=== PATIENT | female | born 1965 | race Caucasian/White ===

== ENCOUNTER → 2017-02-02 | Outpatient (CLI) | payer OTHER ==
[~2017-02-02] MED LIST: BUPROPION HCL150 M2 PO; ENDOCET 5-3251 EACH PO; LOPRESSOR25 MG PO; LUNESTA1 MG PO; MEDROL DOSEPAK4 MG PO; NABUMETONE500 MG PO; PERCOCET 5/31 TABLET PO; TIZANIDINE HCL2 MG PO; VOLTAREN 1% GE100 GM TP
== END | disposition home or self-care (01) ==
LOC: NUC 07:00
DX: K82.8 Other specified diseases of gallbladder (principal)
CPT/HCPCS: 78227; A9537; J2805

== ENCOUNTER → 2017-02-23 | Outpatient (CLI) | payer OTHER ==
[~2017-02-23] MED LIST changes: +MOTRIN800 MG PO; +VALIUM5 MG PO
== END | disposition home or self-care (01) ==
LOC: CDC 10:18
DX: K81.9 Cholecystitis, unspecified (principal)
CPT/HCPCS: 93000

== ENCOUNTER 2017-03-01 10:48 | Day surgery (SDC) | payer OTHER ==
[~2017-03-01] VITALS: Ht 165.1 cm; Wt 91.1 kg
[2017-03-01 11:17] VITALS: BP 138/88
[2017-03-01] MEDS ORDERED: TRAMADOL HCL50 MG PO (13:17)
[2017-03-01 15:40] VITALS: BP 141/67
[2017-03-01 16:09] VITALS: BP 139/72
== END 2017-03-01 16:30 | disposition home or self-care (01) ==
LOC: SDC 10:48
PROC: 0FT44ZZ Resection of Gallbladder, Percutaneous Endoscopic Approach (ICD-10-PCS; principal; 2017-03-01)
DX: K81.1 Chronic cholecystitis (principal); I10 Essential (primary) hypertension; F17.200 Nicotine dependence, unspecified, uncomplicated
CPT/HCPCS: 88304; J1100; J1170; J1885; J2250; J2405; J2710; J3010

== ENCOUNTER 2017-06-16 21:27 | Emergency (ER) | payer OTHER ==
[~2017-06-16] VITALS: Ht 167.6 cm; Wt 85.6 kg
[~2017-06-16 21:27] MED LIST changes: +TRAMADOL HCL50 MG PO
[2017-06-16 22:39] LABS: HEMATOCRIT 41.1 % (36.0-46.0); HEMOGLOBIN 14.1 G/DL (11.9-15.5); MCH 30.6 PG (29.0-34.0); MCHC 34.3 G/DL (30.0-36.0); MCV 89.2 FL (83-99); PLATELET COUNT 306 K/uL (156-360); RBC DIS.WIDTH-CV 12.1 % (11.8-14.6); RBC DIS.WIDTH-SD 39.7 % (39-53); RED BLOOD COUNT 4.61 M/uL (3.80-5.20); WHITE BLOOD COUNT 19.1 K/uL (4.1-10.2)
[2017-06-16 22:52] LABS: CHLORIDE 107 mEq/L (99-109); POTASSIUM 3.8 mEq/L (3.7-5.4); SODIUM 137 mEq/L (136-147)
[2017-06-16 23:01] LABS: GLUCOSE 134 mg/dL (70-99)
[2017-06-16 23:02] LABS: TROP-I INTERPRETATION NEGATIVE; TROPONIN-I < 0.01 ng/mL (0.0-0.30)
[2017-06-16 23:05] LABS: CREATININE 0.7 mg/dL (0.6-1.3); GFR ESTIMATE (CALCULATED) > 59 mL/min/; UREA NITROGEN (BUN) 17 mg/dL (9-23)
[2017-06-16 23:06] LABS: D-DIMER ELISA < 150.00 ng/mLDDU (<230)
[2017-06-16 23:28] VITALS: BP 172/94
== END 2017-06-16 23:29 | disposition home or self-care (01) ==
LOC: EME 21:27
PROVIDERS: Emergency Medicine
DX: R00.2 Palpitations (principal); T38.0X5A Adverse effect of glucocorticoids and synthetic analogues, initial encounter; I10 Essential (primary) hypertension; F17.200 Nicotine dependence, unspecified, uncomplicated; Z98.51 Tubal ligation status; Z88.5 Allergy status to narcotic agent
CPT/HCPCS: 80048; 84484; 85027; 85379; 93005; 99281; 99283

== ENCOUNTER 2017-08-20 18:54 | Emergency (ER) | payer OTHER ==
[~2017-08-20] VITALS: Ht 165.1 cm; Wt 87.2 kg
[2017-08-20 21:03] LABS: BASOPHIL (%) 0.3 % (0-1); EOSINOPHIL (%) 1.3 % (0-5); EOSINOPHIL COUNT 0.2 K/uL (0-0.3); HEMATOCRIT 25.6 % (36.0-46.0); IMMATURE GRANULOCYTE (%) 1.7 % (0.0-0.7); LYMPHOCYTE (%) 22.3 % (15-42); LYMPHOCYTE COUNT 2.5 K/uL (1.0-2.8); MCH 30.3 PG (29.0-34.0); MCHC 32.8 G/DL (30.0-36.0); MCV 92.4 FL (83-99); MONOCYTE (%) 8.5 % (3-12); NEUTROPHIL (%) 65.9 % (45-76); NEUTROPHIL COUNT 7.4 K/uL (1.8-6.4); PLATELET COUNT 308 K/uL (156-360); RBC DIS.WIDTH-CV 12.7 % (11.8-14.6); RBC DIS.WIDTH-SD 42.1 % (39-53); WHITE BLOOD COUNT 11.2 K/uL (4.1-10.2)
[2017-08-20 21:06] LABS: HEMOGLOBIN 8.4 G/DL (11.9-15.5); RED BLOOD COUNT 2.77 M/uL (3.80-5.20)
[2017-08-20 21:12] LABS: ALBUMIN 3.5 g/dL (3.2-4.8); CHLORIDE 108 mEq/L (99-109); POTASSIUM 3.7 mEq/L (3.7-5.4); SODIUM 142 mEq/L (136-147)
[2017-08-20 21:15] LABS: GLUCOSE 96 mg/dL (70-99); TOTAL PROTEIN 6.1 g/dL (6.4-8.3)
[2017-08-20 21:17] LABS: TOTAL BILIRUBIN 0.3 mg/dL (0.0-1.0)
[2017-08-20 21:18] LABS: ALKALINE PHOSPHATASE 64 IU/L (3-129); CREATININE 0.6 mg/dL (0.6-1.3); GFR ESTIMATE (CALCULATED) > 59 mL/min/
[2017-08-20 21:19] LABS: UREA NITROGEN (BUN) 13 mg/dL (9-23)
[2017-08-20 21:20] LABS: AST (GOT) 17 IU/L (2-34)
[2017-08-20 21:21] LABS: ALT (GPT) 18 IU/L (3-49)
[2017-08-20] MEDS ORDERED: KEFLEX500 MG PO (23:20)
[2017-08-21] MEDS ORDERED: DIFLUCAN150 MG PO (00:23)
[2017-08-21 00:55] VITALS: BP 175/100
== END 2017-08-21 00:56 | disposition home or self-care (01) ==
LOC: EME 18:54
PROVIDERS: Physician Assistant
DX: S72.112A Displaced fracture of greater trochanter of left femur, initial encounter for closed fracture (principal); M97.02XA Periprosthetic fracture around internal prosthetic left hip joint, initial encounter; X50.9XXA Other and unspecified overexertion or strenuous movements or postures, initial encounter; Y93.01 Activity, walking, marching and hiking; D64.9 Anemia, unspecified; Z96.642 Presence of left artificial hip joint; Z88.5 Allergy status to narcotic agent; F17.200 Nicotine dependence, unspecified, uncomplicated
CPT/HCPCS: 71046; 71275; 73502; 80053; 83605; 85025; 85379; 87040; 87070; 87075; 87205; 93005; 99281; 99285; J2270; J7030

== ENCOUNTER 2018-01-12 15:31 | Emergency (ER) | payer OTHER ==
[~2018-01-12] VITALS: Ht 165.1 cm; Wt 75.0 kg
[~2018-01-12 15:31] MED LIST changes: +DIFLUCAN150 MG PO; +KEFLEX500 MG PO
[2018-01-12 18:02] VITALS: BP 130/74
== END 2018-01-12 18:03 | disposition home or self-care (01) ==
LOC: EME 15:31
DX: S73.101A Unspecified sprain of right hip, initial encounter (principal); S83.91XA Sprain of unspecified site of right knee, initial encounter; X58.XXXA Exposure to other specified factors, initial encounter; Y93.01 Activity, walking, marching and hiking; Y92.007 Garden or yard of unspecified non-institutional (private) residence as the place of occurrence of the external cause; F17.200 Nicotine dependence, unspecified, uncomplicated; Z96.643 Presence of artificial hip joint, bilateral; Z88.5 Allergy status to narcotic agent
CPT/HCPCS: 73502; 73564; 99281; 99283